=== PATIENT | female | born 1995 | race Caucasian/White ===

== ENCOUNTER 2016-11-10 18:22 | Emergency (ER) | payer BC ==
[~2016-11-10] VITALS: Ht 167.6 cm; Wt 55.5 kg
[~2016-11-10 18:22] MED LIST: PRENAT PO
[2016-11-10 18:26] VITALS: Ht 167.6 cm; Wt 55.5 kg
[2016-11-10 19:53] LABS: BASOPHILS % 0.4 % (0.0-2.0); EOSINOPHILS # 0.1 10^3/ul (0.0-0.5); EOSINOPHILS % 0.9 % (0.0-7.0); HEMOGLOBIN 14.2 g/dl (12.0-16.0); LYMPHOCYTES # 1.7 10^3/ul (0.8-2.9); LYMPHOCYTES % 15.4 % (18.0-55.0); MEAN CORPUSCULAR HEMOGLOBIN 29.2 pg (29.0-33.0); MEAN CORPUSCULAR HGB CONC 33.9 g/dl (32.0-37.0); MEAN CORPUSCULAR VOLUME 86.4 fl (72.0-104.0); MEAN PLATELET VOLUME 10.2 fl (7.4-10.4); MONOCYTE # 1.4 10^3/ul (0.3-0.9); MONOCYTES % 12.1 % (0.0-13.0); NEUTROPHIL # 8.1 10^3/ul (1.6-7.5); NEUTROPHILS % 71.2 % (30.0-74.0); PLATELET COUNT 245 10^3/UL (140-440); RED BLOOD COUNT 4.86 10^6/ul (4.20-5.40); RED CELL DISTRIBUTION WIDTH 13.8 % (11.5-14.5); UNCORRECTED WBC 11.3 10^3/ul (4.8-10.8); WHITE BLOOD COUNT 11.3 10^3/ul (4.8-10.8)
[2016-11-10 19:55] LABS: ADD UMIC YES; URINE BILIRUBIN (Dip) NEGATIVE (NEGATIVE); URINE BLOOD (Dip) NEGATIVE (NEGATIVE); URINE COLOR LT. YELLOW (YELLOW); URINE GLUCOSE (Dip) NEGATIVE (NEGATIVE); URINE KETONES (Dip) NEGATIVE (NEGATIVE); URINE LEUKOCYTE ESTERASE (Dip) 1+ (NEGATIVE); URINE NITRITE (Dip) POSITIVE (NEGATIVE); URINE TOTAL PROTEIN (Dip) NEGATIVE (NEGATIVE); URINE UROBILINOGEN (Dip) 0.2 E.U./dL (0.1-1.0)
[2016-11-10 19:58] LABS: CONDITION 1
[2016-11-10 20:02] LABS: ALBUMIN 5.1 g/dl (3.3-4.9); POTASSIUM 3.9 mmol/L (3.5-5.1)
[2016-11-10 20:04] LABS: BILIRUBIN,INDIRECT 0.1 mg/dl (0-1.1); CREATININE 0.53 mg/dl (0.44-1.00)
[2016-11-10 20:05] LABS: ALBUMIN/GLOBULIN RATIO 1.37; BILIRUBIN,TOTAL 0.1 mg/dl (0.2-1.3); CALCIUM 9.7 mg/dl (8.4-10.2); TOTAL PROTEIN 8.8 g/dl (6.1-8.1)
[2016-11-10 20:39] LABS: URINE RBCS 0-2 /HPF (0)
[2016-11-10 20:40] LABS: BACTERIA,URINE MANY; SQUAMOUS EPITHELIAL CELL,UR MODERATE
--- NOTE | 2016-11-10 20:47 | RADRPT ---
PROCEDURE: US Pelvis CLINICAL INDICATION: Pelvic pain TECHNIQUE: Sonographic evaluation of the pelvis was performed utilizing both transabdominal and tr ansvaginal technique. Curved array transabdominal transducer technique as well as a high frequency endovaginal probe was utilized. Images were reviewed on the high-resolution PACS workstation. COMPARISON: 06/17/2015 FINDINGS: The uterus is normal in size, echogenicity, and morphology measuring about 8.0 x 4.3 x 5.2 cm. The uterus is anteverted in normal position. The endometrium is mildly prominent measuring about 1.3 c m in diameter. The trilaminar stripe of the endometrium is preserved. No uterine myomas are visualiz ed. The right ovary measures 4.1 x 1.9 x 2.7 cm in dimension. The left ovary measures 3.8 x 1.4 x 2.5 c m in dimension. The ovaries are symmetric in size, echogenicity, and morphology. There are no adne xal masses. A small amount of free fluid is visualized within the posterior cul-de-sac and right ad nexa. No other incidental abnormality is identified. RPTAT: ZZ IMPRESSION: 1. Small amount of free fluid within the posterior cul-de-sac and right adnexa. 2. Unremarkable appearance of the uterus and ovaries. .Dacia Wetzel MD, MD Date Time Electronically viewed and signed by .Dacia Wetzel MD, MD on 11/10/2016 20:47 .T/
--- NOTE | 2016-11-10 21:07 | ERD ---
ER Documentation Chief Complaint Date/Time DATE: 11/10/16 TIME: 21:04 Chief Complaint rlq abdominal pain on and off for past 4 days, oct 23 had an HPI Is a 21-year-old female who presents to the emergency department today complaining of some right-sided pelvic pain for the past 4 days. States that it was intermittent but is now constant since last night. States she has taken Tylenol. States that she had an the beginning of September and was followed up with Dr. Rubio and was cleared at the beginning of September. States that she took a pill for the apportionment and never had a D&C. She also has some nausea. Denies any fevers or chills. ROS All systems reviewed and are negative except as per history of present illness. Medications Home Meds Active Scripts Ondansetron Hcl* (Zofran*) 4 Mg Tablet, 4 MG PO Q6H for NAUSEA AND/OR VOMITING, #30 TAB Prov:PARISA CRUZC 11/10/16 Acetaminophen* (Tylophen*) 500 Mg Capsule, 1 CAP PO Q6H Y for PAIN AND OR ELEVATED TEMP, #30 CAP Prov:PARISA CRUZ PA-C 11/10/16 Ibuprofen* (Motrin*) 800 Mg Tab, 800 MG PO Q6, #30 TAB Prov:PARISA CRUZ PA-C 11/10/16 Cephalexin* (Keflex*) 500 Mg Capsule, 500 MG PO QID for 7 Days, CAP Prov:PARISA CRUZC 11/10/16 Reported Medications Multivit/Min/Fol Ac/Iron/Pren* ( S*) 1 Tab Tab, 1 TAB PO DAILY, TAB 10/22/15 Allergies Allergies: Coded Allergies: No Known Allergy (Verified , 11/10/16) PMhx/Soc History of Surgery: Yes (inguinal hernia, c/section x1) Anesthesia Reaction: No Hx Neurological Disorder: No Hx Respiratory Disorders: No Hx Cardiac Disorders: No Hx Psychiatric Problems: Yes (depression, anxiety 08, in 7th grade had a therapist) Hx Miscellaneous Medical Probl: No Hx Alcohol Use: No Hx Substance Use: No Hx Tobacco Use: No Smoking Status: Never smoker Physical Exam Vitals Vital Signs Date Time Temp Pulse Resp B/P Pulse Ox O2 Delivery O2 Flow Rate FiO2 2/12/17 18:26 97.8 73 18 134/78 100 Physical Exam Const: NAD Head: Atraumatic Eyes: Normal Conjunctiva ENT: Normal External Ears, Nose and Mouth. Neck: Full range of motion..~ No meningismus. Resp: Clear to auscultation bilaterally Cardio: Regular rate and rhythm, no murmurs Abd: Soft, right-sided pelvic pain non distended. Normal bowel sounds. No right lower quadrant pain. No tenderness at McBurney's. No left lower quadrant pain. Skin: No petechiae or rashes Back: No midline or flank tenderness. No CVA tenderness. Ext: No cyanosis, or edema Neur: Awake and alert Psych: Normal Mood and Affect Result Diagram: 11/10/16193911/10/161939 Results 24 hrs Laboratory Tests Test 11/10/16 19:40 Alanine Aminotransferase (ALT/SGPT) 21IU/L Albumin 5.1g/dl Albumin/Globulin Ratio 1.37 Alkaline Phosphatase 145IU/L Anion Gap 22 Aspartate Amino Transf (AST/SGOT) 23IU/L Basophils # 0.010^3/ul Basophils % 0.4% Blood Urea Nitrogen 8mg/dl Calcium Level 9.7mg/dl Carbon Dioxide Level 27mmol/L Chloride Level 98mmol/L Creatinine 0.53mg/dl Direct Bilirubin 0.00mg/dl Eosinophils # 0.110^3/ul Eosinophils % 0.9% Globulin 3.70g/dl Glucose Level 95mg/dl Hematocrit 42.0% Hemoglobin 14.2g/dl Indirect Bilirubin 0.1mg/dl Lipase 80U/L Lymphocytes # 1.710^3/ul Lymphocytes % 15.4% Mean Corpuscular Hemoglobin 29.2pg Mean Corpuscular Hemoglobin Concent 33.9g/dl Mean Corpuscular Volume 86.4fl Mean Platelet Volume 10.2fl Monocytes # 1.410^3/ul Monocytes % 12.1% Neutrophils # 8.110^3/ul Neutrophils % 71.2% Nucleated Red Blood Cells # 0.010^3/ul Nucleated Red Blood Cells % 0.0/100WBC Platelet Count 77567^3/UL Potassium Level 3.9mmol/L Red Blood Count 4.8610^6/ul Red Cell Distribution Width 13.8% Sodium Level 143mmol/L Total Bilirubin 0.1mg/dl Total Protein 8.8g/dl Urine Bacteria MANY Urine Bilirubin NEGATIVE Urine Clarity HAZY Urine Color LT. YELLOW Urine Glucose NEGATIVE% Urine Hemoglobin NEGATIVE Urine Ketones NEGATIVE Urine Leukocyte Esterase 1+ Urine Microscopic RBC 0-2/HPF Urine Microscopic WBC 5-10/HPF Urine Nitrite POSITIVE Urine Specific [place] 1.015 Urine Squamous Epithelial Cells MODERATE Urine Total Protein NEGATIVE Urine Urobilinogen 0.2 E.U./dL Urine pH 6.0 White Blood Count 11.310^3/ul Current Medications Medications (Trade) Dose Ordered Sig/Juanis Route PRN Reason Start Time Stop Time Status Last Admin Dose Admin Ondansetron HCl (Zofran Inj) 4 mg ONCE STAT IV 11/10/16 21:10 11/10/16 21:13 DC Morphine Sulfate (morphine) 4 mg ONCE STAT IV 11/10/16 21:10 11/10/16 21:44 DC Cephalexin (Keflex) 500 mg ONCE ONCE PO 11/10/16 22:00 11/10/16 22:01 11/10/16 21:53 DIAGNOSTIC IMAGING REPORT Patient: MARILYN REAVES : 1995 Age: 21 Sex: F MR #: [id number] DOS: 11/10/16 0000 Ordering MD: PARISA CRUZ PA-C Location: E Room/Bed: PROCEDURE: US Pelvis CLINICAL INDICATION: Pelvic pain TECHNIQUE: Sonographic evaluation of the pelvis was performed utilizing both transabdominal and transvaginal technique. Curved array transabdominal transducer technique as well as a high frequency endovaginal probe was utilized. Images were reviewed on the high-resolution PACS workstation. COMPARISON: 06/17/2015 FINDINGS: The uterus is normal in size, echogenicity, and morphology measuring about 8.0 x 4.3 x 5.2 cm. The uterus is anteverted in normal position. The endometrium is mildly prominent measuring about 1.3 cm in diameter. The trilaminar stripe of the endometrium is preserved. No uterine myomas are visualized. The right ovary measures 4.1 x 1.9 x 2.7 cm in dimension. The left ovary measures 3.8 x 1.4 x 2.5 cm in dimension. The ovaries are symmetric in size, echogenicity, and morphology. There are no adnexal masses. A small amount of free fluid is visualized within the posterior cul-de-sac and right adnexa. No other incidental abnormality is identified. RPTAT: ZZ IMPRESSION: 1. Small amount of free fluid within the posterior cul-de-sac and right adnexa. 2. Unremarkable appearance of the uterus and ovaries. .Dacia Wetzel MD, MD Date Time Electronically viewed and signed by .Dacia Wetzel MD, on 11/10/2016 20: 47 .T/ CC: PARISA CRUZ PA-C Procedures/MDM This is 21-year-old female who presents to the emergency department today complaining of right-sided pelvic pain for the past 4 days that worsened today. On physical exam patient had right-sided pelvic pain. She recently had an at the beginning of September and did have a follow-up with her physician and was cleared at that time. She did have some right-sided pelvic pain and therefore did obtain laboratory work as well as imaging Laboratory work shows a mildly elevated white blood cell count of 11.3. She is not anemic. Platelets are within normal limits. Electrocardiogram within normal limits. Liver function is within normal limits. Lipase is normal limits. Urine test is negative UA is positive for nitrates and shows 1+ leukocyte esterase. I will treat the patient for urinary tract infection. Ultrasound shows a small amount of free fluid within the posterior cul-de-sac and right adnexa. There are no adnexal masses. Otherwise unremarkable appearance of the uterus and ovaries. Patient's pelvic pain at this time most likely secondary to urinary tract infection. Low suspicion for tubo-ovarian abscess, ovarian torsion, ectopic . Patient is afebrile and otherwise well-appearing. She has no right lower quadrant pain or tenderness at [facility] and I have low suspicion for any acute surgical abdomen. I did go check on the patient and offered to give her pain medication however she declined any stating that she was breast- feeding and did not want any strong pain medications. I also offered the patient Tylenol or Motrin and Zofran patient declined that as well. Patient had indicated that she started feeling dizzy from the pain and I was notified by the nursing staff that she was complaining of numbness and tingling in her fingers as well as some pain in her legs. After speaking with the patient and patient is under a significant amount of stress at home with her baby and other family situations. I have recommended that the patient see a counselor for further evaluation. Patient was unsure if she is going to be old to get to a pharmacy [facility] and was therefore given 1 dose of Keflex here while she was at the emergency department. She was discharged home with the Keflex, Tylenol and Motrin and Zofran for any nausea. Patient was instructed to return in 8-12 hours if there is any worsening of symptoms or no improvement in pain. Patient understood At this time the patient is stable for discharge and outpatient management. Patient should follow up with their PCP in the next 1-2 days. They may return to the emergency department sooner for any persistent or worsening of symptoms. Patient understood and agreed with the plan. Departure Diagnosis: Primary Impression: UTI (urinary tract infection) Condition: PARISA Antonio PA-C Nov 10, 2016 21:07
[2016-11-10] MEDS ORDERED: morphine 4 MG/ML VIAL IV STA (21:10)
[2016-11-10] MEDS ORDERED: ONDANSETRON 4 MG INJ IV STA (21:10)
[2016-11-10] MEDS ORDERED: IBUP800T25 PO (21:51)
[2016-11-10] MEDS ORDERED: CEPH-443 PO (21:51)
[2016-11-10] MEDS ORDERED: ACET500C5 PO (21:52)
[2016-11-10] MEDS ORDERED: ONDA4TAB8 PO (21:53)
[2016-11-10] MEDS ORDERED: CEPHALEXIN 500 MG CAP PO ONE (22:00)
[2016-11-10 22:01] VITALS: BP 131/67; PULSE 87; RESP 16; TEMP 98.6
== END 2016-11-10 22:02 | disposition home or self-care (01) ==
LOC: FTE 18:22
DX: N39.0 Urinary tract infection, site not specified (principal); R11.0 Nausea
CPT/HCPCS: 76830; 76856; 80053; 81001; 83690; 85025; Z7502; Z7610; 81003; J2270; J2405